=== PATIENT | male | born 1950 | race Caucasian/White ===

== ENCOUNTER → 2017-05-25 | Outpatient (CLI) | payer OTHER ==
[~2017-05-25] MED LIST: ACET-1256 PO
--- NOTE | 2017-06-02 10:19 | CODING QUERY NO DIAGNOSIS ---
TREATMENT RENDERED WITHOUT A DIAGNOSIS : 1950 To promote full compliance with coding requirements relating to patient care, physician participation is requested in all cases of filling mixer uncertainty. Please assist us with providing a diagnosis/symptom for the test(s) below: A diagnosis/symptom was not documented on your Order. A valid diagnosis/symptom is required to bill all insurances. Please remember that we are unable to code a diagnosis of rule out, probable, possible, questionable, or suspected. Tests that require a diagnosis: DOS: 05/25/17 * VITAMIN B2 DIAGNOSIS: Provider Signature: Date: Thank you [facility] Once completed, please kindly fax back to [phone] For questions please call [phone]
== END | disposition home or self-care (01) ==
LOC: C.LABPVFM 13:02
PROVIDERS: ATTEND Family Medicine Adult Medicine
DX: R20.0 Anesthesia of skin (principal)